=== PATIENT | male | born 1950 | race Caucasian/White ===

== ENCOUNTER 2019-06-15 08:56 | Emergency (ER) | payer OTHER ==
[~2019-06-15] VITALS: Ht 170 cm; Wt 85.6 kg
[2019-06-15 09:30] LABS: BILIRUBIN,URINE NEGATIVE (NEGATIVE); CLARITY,URINE CLEAR; COLOR,URINE YELLOW; GLUCOSE, URINE (UA) NEGATIVE (NEGATIVE); KETONES,URINE NEGATIVE (NEGATIVE); LEUKOCYTE ESTERASE ,URINE NEGATIVE (NEGATIVE); NITRITE,URINE NEGATIVE (NEGATIVE); PH,URINE 5.5 (5-9); PROTEIN,URINE NEGATIVE (NEGATIVE)
[2019-06-15 09:39] LABS: BACTERIA,URINE NEGATIVE /HPF; RBC,URINE 0-2 /HPF; SQUAMOUS EPITHELIAL CELL,UR RARE /HPF
[2019-06-15] MEDS ORDERED: ONDA4TAB11 SL (10:01)
[2019-06-15] MEDS ORDERED: ACHD5005 PO (10:01)
--- NOTE | 2019-06-15 10:02 | ED Back Pain ---
General Chief Complaint: Back Problems Stated Complaint: KIDNEY STONE Nursing Triage Note: STATES OVER THE LAST 4 DAYS HE HAS HAD TWO BOUTS OF LEFT LOWER BACK PAIN THAT WAS SEVERE. HX OF KIDNEY STONES AND THINKS HE HAS ANOTHER. PT IS VISIITNG FROM [place] FOR [place]. Nursing Sepsis Screen: No Definite Risk Source of Information: Patient Exam Limitations: No Limitations History of Present Illness Date Seen by Provider: Jun 15, 2019 Time Seen by Provider: 09:04 Initial Comments This 68-year-old gentleman presents to the emergency room with complaints of right flank pain. He had one episode on Friday and then again on Friday. Pain is rather intense. He now has a mild ache. He states the pain feels similar to prior kidney stones. He denies any change in his urine. He has no constipati on, diarrhea, or fever. He had some sweats associated with the pain. He is in town visiting from [place]. He has family here in [place]. He is concerned about traveling home and being without medications if his symptoms return. Allergies and Home Medications Allergies Coded Allergies: ciprofloxacin (Verified Allergy, Severe, HIVES, 06/15/19) Home Medications Hydrocodone Bit/Acetaminophen 1 Tab Tab, 1 EACH PO Q4-6HR PRN for PAIN-MODERATE Prescribed by: ULI CARBALLO on 06/15/19 1001 Ondansetron 4 Mg Tab.rapdis, 4 MG SL Q4H Prescribed by: ULI CARBALLO on 06/15/19 1001 Patient Home Medication List Home Medication List Reviewed: Yes Review of Systems Constitutional: no symptoms reported EENTM: no symptoms reported Respiratory: no symptoms reported Cardiovascular: no symptoms reported Gastrointestinal: see HPI Genitourinary: no symptoms reported Musculoskeletal: see HPI Skin: no symptoms reported Psychiatric/Neurological: No Symptoms Reported Past Bbxowxb-Ujynwi-Rvmcuq Hx Past Med/Social Hx: Reviewed and Corrections made Patient Social History Alcohol Use: Denies Use Recreational Drug Use: No Smoking Status: Never a Smoker Recent Foreign Travel: No Contact w/Someone Who Travel: No Recent Infectious Disease Expo: No Recent Hopitalizations: No Past Medical History Surgeries: Yes (HERNIA, TESTICLE, Achilles tendon) Orthopedic Respiratory: No Cardiac: No Neurological: No Genitourinary: Yes Kidney Stones Gastrointestinal: No Musculoskeletal: No Endocrine: No HEENT: No Cancer: No Psychosocial: No Integumentary: No Physical Exam Vital Signs Vital Signs - First Documented 06/15/19 08:59 Temp 36.6 Pulse 67 B/P (MAP) 144/90 (108) Pulse Ox 100 O2 Delivery Room Air Capillary Refill : Less Than 3 Seconds Height, Weight, BMI Height: '" Weight: lbs. oz. kg; 29.00 BMI Method: General Appearance: No Apparent Distress, WD/WN HEENT: PERRL/EOMI, Normal ENT Inspection Neck: Normal Inspection Cardiovascular: Regular Rate, Rhythm, No Edema, No Murmur Respiratory: Lungs Clear, Normal Breath Sounds, No Accessory Muscle Use Gastrointestinal: Normal Bowel Sounds, Non Tender, Soft Back: Normal Inspection, No CVA Tenderness Extremity: Normal Inspection, No Pedal Edema Neurologic/Psychiatric: Alert, Oriented x3, No Motor/Sensory Deficits, Normal Mood/Affect Skin: Normal Color, Warm/Dry Progress/Results/Core Measures Results/Orders Lab Results Laboratory Tests Test 06/15/19 09:17 Range/Units Urine Color YELLOW Urine Clarity CLEAR Urine pH 5.5 5-9 Urine Specific Trinity 1.025 H 1.016-1.022 Urine Protein NEGATIVE NEGATIVE Urine Glucose (UA) NEGATIVE NEGATIVE Urine Ketones NEGATIVE NEGATIVE Urine Nitrite NEGATIVE NEGATIVE Urine Bilirubin NEGATIVE NEGATIVE Urine Urobilinogen 0.2 < = 1.0 MG/DL Urine Leukocyte Esterase NEGATIVE NEGATIVE Urine RBC (Auto) 1+ H NEGATIVE Urine RBC 0-2 /HPF Urine WBC NONE /HPF Urine Squamous Epithelial Cells RARE /HPF Urine Crystals NONE /LPF Urine Bacteria NEGATIVE /HPF Urine Casts NONE /LPF Urine Mucus NEGATIVE /LPF Urine Culture Indicated NO My Orders Orders - ULI WOODARD MD Ua Culture If Indicated (06/15/19 09:04) Vital Signs/I&O 06/15/19 08:59 Temp 36.6 Pulse 67 B/P (MAP) 144/90 (108) Pulse Ox 100 O2 Delivery Room Air Blood Pressure Mean: 108 Progress Progress Note : Progress Note Patient seen and examined. Urinalysis was unremarkable. We discussed options including imaging with x-ray or CT scan. Since he is currently not in significant pain and imaging would not likely change course of care until he returns home, patient elects to forego imaging at this time. A small quantity of nausea and pain medication is being provided to help manage symptoms should he have trouble before he returns home. He was advised not to drive on hydrocodone. Departure Impression Primary Impression: Right flank pain Additional Impression: History of kidney stones Disposition: 01 HOME, SELF-CARE Condition: Stable Departure-Patient Inst. Decision time for Depature: 09:59 Referrals: NO,LOCAL PHYSICIAN (PCP) Primary Care Physician Patient Instructions: Kidney Stones in Adults Add. Discharge Instructions: Drink plenty of clear liquids. For pain you may use ibuprofen 600 mg every 6 hours or naproxen (Aleve) 500 mg every 12 hours. For pain not controlled by bzil-xat-myffkqx medications, add hydrocodone as prescribed. Use a stool softener such as Colace to prevent constipation with hydrocodone. Use Zofran (ondansetron) as prescribed for nausea and vomiting. Follow-up with your primary care provider as soon as possible. Return to emergency room if you have worsening symptoms. All discharge instructions reviewed with patient and/or family. Voiced understanding. Scripts Ondansetron (Ondansetron Odt) 4 Mg Tab.rapdis 4 MG SL Q4H, #10 TAB Prov: ULI WOODARD MD 06/15/19 Hydrocodone Bit/Acetaminophen (Hydrocodone/Acetaminophen 5/325mg Tablet) 1 Tab Tab 1 EACH PO Q4-6HR PRN for PAIN-MODERATE MDD 10, #8 TAB Prov: ULI WOODARD MD 06/15/19 ULI WOODARD MD Jun 15, 2019 10:02
[2019-06-15 10:12] VITALS: BP 144/90
== END 2019-06-15 10:12 | disposition home or self-care (01) ==
LOC: EDUNIT# 08:56 → ER 08:58
DX: R10.9 Unspecified abdominal pain (principal); Z87.442 Personal history of urinary calculi; Z88.1 Allergy status to other antibiotic agents; Z98.890 Other specified postprocedural states
CPT/HCPCS: 81000; 99282

== ENCOUNTER 2022-01-29 18:24 | Emergency (ER) | payer OTHER ==
[~2022-01-29] VITALS: Ht 177.8 cm; Wt 87.0 kg
[~2022-01-29 18:24] MED LIST: ACHD5005 PO; ONDA4TAB11 SL
--- NOTE | 2022-01-29 19:18 | ED Fall/Injury ---
General Chief Complaint: Trauma-Non Activation Stated Complaint: HEAD INJURY Source: patient History of Present Illness Date Seen by Provider: Jan 29, 2022 Time Seen by Provider: 18:59 Initial Comments PT ARRIVES VIA POV FROM HOME PT WAS STANDING ON A LADDER, AND A STUD FELL DOWN, AND KNOCKED THE LADDER OUT FROM UNDER HIM AND HE GRABBED AN OVER HEAD BEAM THAT WAS AT LEAST 11 FEET OFF THE GROUND, AND WAS HANGING FROM IT. THEN HE DROPPED STRAIGHT DOWN TO CONCRETE FLOOR, LANDING ON HIS FEET AND THEN FALLING BACKWARDS, HITTING THE BACK OF HIS HEAD ON THE CONCRETE FLOOR DENIES LOSS OF CONSCIOUSNESS, BUT WAS DAZED NO DIZZINESS NO NAUSEA/VOMITING NO VISION CHANGES NO PARESTHESIAS OR MOTOR DEFICITS HAS PAIN TO BACK OF HEAD AND LACERATION TO BACK OF HEAD C/O NECK PAIN C/O LEFT UPPER ARM PAIN C/O LEFT HIP PAIN LAST TETANUS VACCINE WAS LESS THAN A YEAR AGO PT IS NOT ON ASPIRIN OR ANY BLOOD THINNERS DENIES ANY CHRONIC MEDICAL PROBLEMS AND TAKES NO MEDICATIONS PT HAS HAD ROOOMERS COVID-19 VACCINE X 1--OVER A YEAR AGO PT LIVES IN [place] MOST OF THE YEAR, COMES HERE TO [place] IN THE [place] SEES DR. TOMAS WHILE HE IS HERE IN THIS AREA. Allergies and Home Medications Allergies Coded Allergies: ciprofloxacin (Verified Allergy, Severe, HIVES, 06/15/19) Patient Home Medication List Home Medication List Reviewed: Yes Cephalexin (Cephalexin) 500 Mg Tablet, 500 MG PO QID Prescribed by: FELIPA JAMES on 01/29/222056 Hydrocodone Bit/Acetaminophen (Lortab 5 Mg Tablet) 1 Tab Tab, 1 EACH PO Q4-6HR PRN for PAIN-MODERATE Prescribed by: ULI CARBALLO on 06/15/19 1001 Ondansetron (Ondansetron Odt) 4 Mg Tab.rapdis, 4 MG SL Q4H Prescribed by: ULI CARBALLO on 06/15/19 1001 Review of Systems Review of Systems Constitutional: see HPI Eyes: No Symptoms Reported Ears, Nose, Mouth, Throat: no symptoms reported Respiratory: no symptoms reported Cardiovascular: no symptoms reported Gastrointestinal: no symptoms reported Genitourinary: no symptoms reported Musculoskeletal: see HPI Skin: see HPI Psychiatric/Neurological: See HPI, Headache Past Wmindjp-Byxbcw-Idsihz Hx Patient Social History Tobacco Use?: No Use of E-Cig and/or Vaping dev: No Substance use?: No Alcohol Use?: No Pt feels they are or have been: No Immunizations Up To Date Influenza Vaccine Up-to-Date: No; Not Current First/Initial COVID19 Vaccinat: 08/06 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: [employer] Past Medical History Surgeries: Yes Abdominal, Orthopedic, Testicular Respiratory: No Cardiac: No Neurological: No Genitourinary: Yes Kidney Stones Gastrointestinal: No Musculoskeletal: No Endocrine: No HEENT: No Cancer: No Psychosocial: No Integumentary: No Family Medical History PAST SURGICAL HISTORY: -HERNIA REPAIR -SURGERY FOR UNDESCENDED TESTICLE -HAND SURGERY -ACHILLES TENDON SURGERY Physical Exam Vital Signs Vital Signs - First Documented 01/29/22 01/29/22 19:00 20:49 Temp 36.9 Pulse 74 Resp 18 B/P (MAP) 144/102 (116) Pulse Ox 97 O2 Delivery Room Air Capillary Refill : Height, Weight, BMI Height: '" Weight: lbs. oz. kg; 29.00 BMI Method: General Appearance: WD/WN, no apparent distress HEENT: PERRL/EOMI, normal ENT inspection, TMs normal, pharynx normal, other (T- SHAPED LACERATION TO POSTERIOR SCALP) Neck: tender lateral, tender midline Cardiovascular: normal peripheral pulses, regular rate, rhythm, no edema, no JVD, no murmur Respiratory: chest non-tender, normal breath sounds, no respiratory distress, no accessory muscle use Peripheral Pulses: 2+ Dorsalis Pedis (R), 2+ Left Dors-Pedis (L), 2+ Radial Pu lses (R), 2+ Radial Pulses (L) Gastrointestinal: non tender, soft Back: no CVA tenderness, no vertebral tenderness Extremities: no pedal edema, no calf tenderness, normal capillary refill, other (TENDERNESS TO LEFT UPPER ARM; TENDERNESS TO LEFT HIP; NO TENDERNESS OR SWELLING OR BRUISING TO FEET OR ANKLES) 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, no motor/sensory deficits, alert, normal mood/affect, oriented x 3 Skin: normal color, warm/dry; No ecchymosis Unruly Coma Score Best Eye Response: (4) Open Spontaneously Best Verbal Response: (5) Oriented Best Motor Response: (6) Obeys Commands Unruly Total: 15 Procedures/Interventions Other Wound Location POSTERIOR SCALP Wound Length (cm): 7 Wound's Depth, Shape: irregular (T-SHAPED LACERATION ---5 CM X 2 CM), sub Q Wound Explored: clean Betadine Prep?: No (BETASEPT) Anesthesia: 1% Lidocaine Staple Repair: Stapler 35W (#11 STEPHANY PLACED) Sterile Dressing Applied?: Yes Progress/Results/Core Measures Results/Orders My Orders Orders - FELIPA JAMES DO Ed Iv/Invasive Line Start (01/29/22 19:02) Monitor-Rhythm Ecg Trace Only (01/29/22 19:02) Ct Head/Cervical Spine Wo (01/29/22 19:02) Ct Thoracic/Lumbar Spine Wo (01/29/22 19:02) Chest 1 View, Ap/Pa Only (01/29/22 19:02) Foot, Bilateral, 3 View (01/29/22 19:02) Cervical Collar (01/29/22 19:02) Humerus, Left, 2 Views (01/29/22 19:10) Pelvis With Left Hip 2-3 Views (01/29/22 19:10) Lidocaine 1% Inj 20 Ml (Xylocaine 1% Inj (01/29/22 20:45) Wound Dressing-Ed (01/29/22 20:36) Lidocaine 1% Inj 20 Ml (Xylocaine 1% Inj (01/29/22 20:38) Cephalexin Capsule (Keflex Capsule) (01/29/22 21:00) Medications Given in ED Current Medications Medications Dose Ordered Sig/Nakita Route Start Time Stop Time Status Last Admin Dose Admin Lidocaine HCl 20 ml STK-MED ONCE .ROUTE 01/29/22 20:38 01/29/22 20:41 DC 01/29/22 20:46 20 ML Vital Signs/I&O 01/29/22 01/29/22 19:00 20:49 Temp 36.9 Pulse 74 90 Resp 18 14 B/P (MAP) 144/102 (116) 114/98 Pulse Ox 97 96 O2 Delivery Room Air Progress Progress Note : Progress Note UNEVENTFUL ER STAY PT WALKS OUT OF ER WITHOUT DIFFICULTY Diagnostic Imaging Comments CT SCANS--PER RADIOLOGIST REPORTS AT 2013 CT HEAD/CERVICAL SPINE-- CT HEAD: CT images of the head were obtained. FINDINGS: Ventricles and sulci are within normal limits for size. There is no intracranial hemorrhage identified. There is no abnormal mass effect or shift of midline structures. IMPRESSION: Left posterior scalp contusion without evidence of acute intracranial abnormality. CT CERVICAL SPINE: Cervical spinal curvature and alignment are unremarkable. Vertebral body heights are maintained. There is diffuse disc space narrowing with endplate spurring and degenerative facet arthropathy with fusion of the right C2-C3 facet joint. No acute fracture or malalignment is identified. There is no evidence of paraspinous hematoma. IMPRESSION: 1. Degenerative findings in the cervical spine without CT evidence of acute cervical spinal abnormality. CT THORACIC/LUMBAR SPINE-- Thoracic spinal curvature and alignment are unremarkable. Vertebral body heights and disc spaces are maintained. No acute fracture or malalignment is seen. There is no evidence of significant paraspinous hematoma. IMPRESSION: No CT evidence of acute thoracic or lumbar spinal abnormality. XRAYS--ALL PER RADIOLOGIST REPORTS AT 2022 CXR--FINDINGS: Heart size and pulmonary vasculature are within normal limits, and the lungs are clear, bilaterally. IMPRESSION: Unremarkable chest. LEFT HUMERUS--FINDINGS: Mild acromioclavicular degenerative change is present. No acute fracture or dislocation is identified. No abnormal lytic or sclerotic focus is seen, and there is no radiopaque foreign body. IMPRESSION: No acute abnormality. PELVIS/LEFT HIP-- FINDINGS: No acute fracture or dislocation is identified. No abnormal lytic or sclerotic focus is seen, and there is no radiopaque foreign body. IMPRESSION: No acute abnormality. BILATERAL FEET--FINDINGS: There is mild lucency within the left 2nd metatarsal head which may be related to osteochondral defect. No acute fracture or dislocation is identified. No abnormal lytic or sclerotic focus is seen, and there is no radiopaque foreign body. IMPRESSION: No acute abnormality. Reviewed: Reviewed by Me Departure Impression Primary Impression: Status post fall Additional Impressions: Acute head injury without loss of consciousness Neck strain Contusion of left upper arm Contusion of left hip Scalp laceration Disposition: 01 HOME, SELF-CARE Condition: Stable Departure-Patient Inst. Decision time for Depature: 20:55 Referrals: SALMA TOMAS DO Patient Instructions: Cervical Sprain ED, Closed Head Injury (DC), Laceration Repair With [facility] ED, Preventing Falls ED Add. Discharge Instructions: CLEAN WOUND TWICE A DAY WITH ANTIBACTERIAL SOAP AND WATER, OTHERWISE KEEP CLEAN AND DRY HOME, REST AVOID ANY STRENOUS ACTIVITIES, AVOID BEING IN THE HEAT, AVOID ANY ACTIVITIES OTHER THAN WALKING TYLENOL NEEDED FOR PAIN ICE TO SORE AREAS AT 20 MINUTE INTERVALS STEPHANY OUT IN 10 DAYS--RETURN TO ER FOR REMOVAL All discharge instructions reviewed with patient and/or family. Voiced understanding. Scripts Cephalexin (Cephalexin) 500 Mg Tablet 500 MG PO QID, #20 TAB 0 Refills Prov: FELIPA JAMES DO 01/29/22 FELIPA JAMES DO Jan 29, 2022 19:18
--- NOTE | 2022-01-29 19:58 | Diagnostic Imaging Report ---
PROCEDURE: CT head and CT cervical spine without contrast. TECHNIQUE: Multiple contiguous axial images were obtained through the brain and cervical spine without the use of intravenous contrast. Sagittal and coronal reformations through the cervical spine were then performed. Auto Exposure Controls were utilized during the CT exam to meet ALARA standards for radiation dose reduction. INDICATION: Fall with head and neck injury CT HEAD: CT images of the head were obtained. FINDINGS: Ventricles and sulci are within normal limits for size. There is no intracranial hemorrhage identified. There is no abnormal mass effect or shift of midline structures. IMPRESSION: Left posterior scalp contusion without evidence of acute intracranial abnormality. CT CERVICAL SPINE: Cervical spinal curvature and alignment are unremarkable. Vertebral body heights are maintained. There is diffuse disc space narrowing with endplate spurring and degenerative facet arthropathy with fusion of the right C2-C3 facet joint. No acute fracture or malalignment is identified. There is no evidence of paraspinous hematoma. IMPRESSION: 1. Degenerative findings in the cervical spine without CT evidence of acute cervical spinal abnormality. Dictated by: Dictated on workstation # [id number]
--- NOTE | 2022-01-29 20:00 | Diagnostic Imaging Report ---
PROCEDURE: CT thoracic and lumbar spine without contrast. TECHNIQUE: Multiple contiguous axial images were obtained through the thoracic and lumbar spine without the use of intravenous contrast. Sagittal and coronal reformations were then performed. All CT scans use one or more of the following dose optimizing techniques: automated exposure control, MA and/or KvP adjustment based on a patient size and exam type, or iterative reconstruction. INDICATION: Fall with back pain Thoracic spinal curvature and alignment are unremarkable. Vertebral body heights and disc spaces are maintained. No acute fracture or malalignment is seen. There is no evidence of significant paraspinous hematoma. IMPRESSION: No CT evidence of acute thoracic or lumbar spinal abnormality. Dictated by: Dictated on workstation # [id number]
--- NOTE | 2022-01-29 20:16 | Diagnostic Imaging Report ---
INDICATION: Pelvic and left hip pain EXAM: AP view of the pelvis is obtained with coned AP and frog-leg view of left hip. FINDINGS: No acute fracture or dislocation is identified. No abnormal lytic or sclerotic focus is seen, and there is no radiopaque foreign body. IMPRESSION: No acute abnormality. Dictated by: Dictated on workstation # [id number]
--- NOTE | 2022-01-29 20:17 | Diagnostic Imaging Report ---
INDICATION: Fall with left arm pain. AP and lateral views of the left upper arm are obtained. FINDINGS: Mild acromioclavicular degenerative change is present. No acute fracture or dislocation is identified. No abnormal lytic or sclerotic focus is seen, and there is no radiopaque foreign body. IMPRESSION: No acute abnormality. Dictated by: Dictated on workstation # [id number]
--- NOTE | 2022-01-29 20:20 | Diagnostic Imaging Report ---
INDICATION: Chest pain EXAM: AP views of the chest are obtained. COMPARISON: No previous study is available for comparison at this time. FINDINGS: Heart size and pulmonary vasculature are within normal limits, and the lungs are clear, bilaterally. IMPRESSION: Unremarkable chest. Dictated by: Dictated on workstation # [id number]
--- NOTE | 2022-01-29 20:23 | Diagnostic Imaging Report ---
INDICATION: Trauma with bilateral foot pain. FINDINGS: There is mild lucency within the left 2nd metatarsal head which may be related to osteochondral defect. No acute fracture or dislocation is identified. No abnormal lytic or sclerotic focus is seen, and there is no radiopaque foreign body. IMPRESSION: No acute abnormality. Dictated by: Dictated on workstation # [id number]
[2022-01-29] MEDS ORDERED: LIDOCAINE 1% INJ 20 ML VIAL ONE (20:38)
[2022-01-29] MEDS ORDERED: LIDOCAINE 1% INJ 20 ML VIAL IJ ONE (20:45)
[2022-01-29 20:49] VITALS: BP 114/98
[2022-01-29] MEDS ORDERED: CEPH500T PO (20:57)
[2022-01-29] MEDS ORDERED: CEPHALEXIN 250 MG (KEFLEX) CAP PO SCH (21:00)
== END 2022-01-29 21:17 | disposition home or self-care (01) ==
LOC: EDUNIT# 18:24 → ER 18:26
DX: S09.90XA Unspecified injury of head, initial encounter (principal); S01.01XA Laceration without foreign body of scalp, initial encounter; S16.1XXA Strain of muscle, fascia and tendon at neck level, initial encounter; S70.02XA Contusion of left hip, initial encounter; S40.022A Contusion of left upper arm, initial encounter; Z91.81 History of falling; W11.XXXA Fall on and from ladder, initial encounter
CPT/HCPCS: 12002; 70450; 71045; 72125; 72128; 72131; 73060; 93041

== ENCOUNTER 2022-02-08 06:18 | Emergency (ER) | payer OTHER ==
[~2022-02-08 06:18] MED LIST changes: +CEPH500T PO
== END 2022-02-08 06:55 | disposition home or self-care (01) ==
LOC: EDUNIT# 06:18 → ER 06:22
DX: Z48.02 Encounter for removal of sutures (principal)